=== PATIENT | female | born 1980 | race Caucasian/White ===

== ENCOUNTER 2021-12-12 04:16 | Outpatient (CLI) | payer OTHER, SELFPAY ==
[2021-12-12 20:35] LABS: COVID-19 RT-PCR UVMMC Result Negative (Negative)
== END 2021-12-12 04:17 | disposition home or self-care (01) ==
LOC: LBO 04:17
PROVIDERS: PCP Family Medicine; Visit Provider Obstetrics & Gynecology
DX: Z20.822 Contact with and (suspected) exposure to COVID-19 (principal)
CPT/HCPCS: U0003

== ENCOUNTER 2022-06-26 12:53 | Emergency (ER) | payer OTHER, SELFPAY ==
[2022-06-26 13:01] VITALS: BP 171/85; PULSE 80; RESP 16; TEMP 36.7; O2SAT 99
--- NOTE | 2022-06-26 13:30 | RT.EKG_ITS ---
APPROVED REPORT Exam: Resting ECG Reason for Exam: yola Patient Location: E HR:80 bpm ECG Measurements Heart Rate 80 AXIS WY 135 P 53 QRSd 106 QRS -15 QT 420 T 14 QTc 483 Conclusion Sinus rhythm...normal P axis, V-rate 60- 99 Probable left ventricular hypertrophy...multiple LVH criteria
--- NOTE | 2022-06-26 13:45 | DI.MRI_ITS ---
Exam(s) MR BRAIN WO EXAM: MR BRAIN WO CLINICAL HISTORY: global paralysis resolved TECHNIQUE: Multiplanar multisequence MRI of the brain was performed. COMPARISON: MR MR ANGIO BRAIN WO from 06/26/2022 FINDINGS: VENTRICLES AND EXTRA AXIAL SPACES: Normal in size and morphology for the patient's age. MIDLINE SHIFT: None. CEREBRAL PARENCHYMA: No focus of restricted diffusion to suggest acute infarct. No space-occupying le josette identified. HEMORRHAGE: None. BRAINSTEM/CEREBELLUM: Normal. CALVARIUM: Normal. VISUALIZED PARANASAL SINUSES/MASTOIDS:Clear. [place]: Normal flow void. PITUITARY GLAND: Unremarkable. OTHER FINDINGS: None. IMPRESSION: Unremarkable MRI of the brain. DATA REPOSITORY:
--- NOTE | 2022-06-26 13:45 | DI.MRI_ITS ---
Exam(s) MR ANGIO BRAIN WO CLINICAL HISTORY: global paralysis, resolved. TECHNIQUE: 3D lias-pk-qdudmy study was performed without contrast. COMPARISON: None. FINDINGS: Carotid Arteries: Petrous: Normal. Cavernous: Normal. Cerebral: Normal. Middle Cerebral Arteries: Right: No aneurysm or significant stenosis. Left: No aneurysm or significant stenosis. Anterior Cerebral Arteries: Right: No aneurysm or significant stenosis. Left: No aneurysm or significant stenosis. Posterior cerebral arteries: Right: No aneurysm or significant stenosis Left: No aneurysm or significant stenosis Vertebral Arteries: Right: No aneurysm or significant stenosis. No dissection. Left: No aneurysm or significant stenosis. No dissection.. Basilar Artery: No aneurysm or significant stenosis. Small Vessels: No evidence of beading. IMPRESSION: Normal MRA examination of the [place]. DATA REPOSITORY:
--- NOTE | 2022-06-26 13:45 | DI.MRI_ITS ---
Exam(s) MR ANGIO NECK WO EXAM: MR ANGIO NECK WO CLINICAL HISTORY: global paralysis, resolved. TECHNIQUE: And 3D uijg-me-fxtrjw studies were performed. COMPARISON: No exams were available for comparison FINDINGS: Common Carotid: Right: Normal. Left: Normal. External Carotid: Right: Normal. Left: Normal. Internal Carotid: Right: Normal. Left: Normal. Vertebral Artery: Right: Normal. Left: Normal. The visualized paraspinal soft tissues are unremarkable. IMPRESSION: Normal MRA of the carotids. Results of this exam have been verbally communicated with the emergency department provider. DATA REPOSITORY:
[2022-06-26 14:25] LABS: Abs Immature Grans 0.01 10^3/uL (0.0-0.06); Absolute Basophil Count 0.03 10^3/uL (0.0-0.2); Absolute Eosinophil Count 0.15 10^3/uL (0.0-0.7); Absolute Lymphocyte Count 2.28 10^3/uL (1.2-3.4); Absolute Monocyte Count 0.39 10^3/uL (0.1-0.8); Absolute Neutrophil Count 3.48 10^3/uL (1.2-6.7); Basophils % 0.5; Eosinophils % 2.4; HCT 43.6 % (36.0-46.0); HGB 13.9 g/dL (11.2-15.7); Immature Grans % 0.2; MCH 26.5 pg (27.0-33.0); MCHC 31.9 % (32.0-36.0); MCV 83 fL (80-95); MPV 9.1 fL (8.0-11.0); Monocytes % 6.2; Neutrophils % 54.7; Platelet Count 299 10^3/uL (130-400); RBC 5.25 10^6/uL (3.93-5.22); RDW 13.3 % (11.7-14.6); RDW-SD 40.5 fL; WBC 6.34 10^3/uL (4.4-10.8)
[2022-06-26 14:30] LABS: Source Nasal/Nares
[2022-06-26 14:43] LABS: ALT 20 U/L (14-59); AST 12 U/L (15-37); Albumin 4.1 g/dL (3.4-5.0); Alkaline Phosphatase 61 U/L (46-116); Anion Gap 9.1 mmol/L (3-11); BUN 19 mg/dL (7-18); Bilirubin, Total 0.3 mg/dL (0.2-1.0); CO2 27.9 mmol/L (21.0-32.0); Calcium 8.6 mg/dL (8.5-10.1); Chloride 106 mmol/L (98-107); Glucose 93 mg/dL (74-106); Potassium 3.3 mmol/L (3.5-5.1); Sodium 143 mmol/L (136-145); Total Protein 7.9 g/dL (6.4-8.2)
[2022-06-26 14:57] VITALS: RESP 18
[2022-06-26 15:02] LABS: Troponin I < 50 ng/L (<or=60)
--- NOTE | 2022-06-26 15:03 | W.ED.GENAD ---
Discharge Plan Disposition Patient Disposition: HOME Condition: Improving Discharge Details Clinical Impression: COVID-19, Altered mental status, unspecified Primary Care Provider: Francesca Nunez ED Provider: Hreberth Winter Home Meds and New Rx's Prescriptions: Continued fluoxetine 40 MG capsule 40 mg PO DAILY betamethasone valerate [Luxiq] 50 GM foam 50 gm Topical PRN eletriptan [Relpax] 20 MG tablet 20 mg PO PRN fexofenadine 180 MG tablet 180 mg PO DAILY Lactobacillus acidophilus 1 EACH tablet 1 ea PO DAILY acetaminophen-codeine [Tylenol-Codeine #3] 1 EACH tablet 1 - 2 tab-cap PO Q4H PRN Qty: 6 0RF Rx Instructions: 1-2 tabs PO q4h prn post-operative pain levalbuterol tartrate [Xopenex HFA] 15 GM HFA aerosol inhaler 90 mcg Inhalation Q4H PRN multivitamin 1 EACH capsule 1 ea PO Discharge Instructions Instructions: Altered Mental Status (ED), COVID-19 (Coronavirus Disease 2019) (ED) Additional Instructions: Your symptoms here in the ER have resolved and your work-up including blood work and MRI-MRA have all been unremarkable for any obvious emergent process. I consulted with neurology at [facility] and they did not have any other recommendations and felt as though discharge was appropriate with outpatient neurology follow-up. I have given you the name and number of our local neurology team, please contact them on Wednesday. Your COVID test today has come back positive. I do recommend wearing a mask and quarantining for the next 10 days. Please watch for new or worsening symptoms and return to the ER for any concerns. Referrals: Adrienne Yun MD [ [facility] STAFF PHYSICIAN] - Discharge Data Discharge Date/Time-TO BE ENTERED AT DEPARTURE: 06/26/22 18:14 Medical Decision Making <ARAM Chandler - Last Filed: 06/30/22 16:26> Patient has a nonfocal neurological exam She is fully alert and oriented CBC and labs Do not show evidence of acute abnormality EKG is within normal limits Pending MRI MRA of patient's head and neck Will transition care to Herberth Winter, pending MRI/MRA interpretation <ARAM Savage - Last Filed: 06/26/22 18:04> Patient has a nonfocal neurological exam She is fully alert and oriented CBC and labs Do not show evidence of acute abnormality EKG is within normal limits Pending MRI MRA of patient's head and neck Will transition care to Herberth Moy, pending MRI/MRA interpretation 1530: Herberth Winter PA-C I assumed care of this 41-year-old female from my colleague ARAM Banda, please see her initial HPI and examination. At time of signout awaiting interpretation of MRI-MRA. Patient is COVID-positive. I had a lengthy conversation with the patient regarding her COVID-positive test. She tells me that she was positive for COVID roughly 1 month ago. At this time we discussed initiating MAB or Paxlovid but she declines. Difficult to know whether this is a new infection or still positive from her recent infection. MRI-MRA unremarkable. I consulted with neurology from [facility], Dr. Vanessa. Given the patient is now asymptomatic, has no other risk factors, and has already had a negative MRI-MRA, he does not have any other recommendations, feels as though the patient can be discharged safely, and recommends outpatient follow-up whether that be here through our neurology team or at their clinic. Upon reevaluation patient is resting comfortably, remains asymptomatic and neurologically intact. We once again discussed that she is COVID-positive, does not wish to pursue treatment. We discussed her MRA and MRI results as well as my consultation with neurology at [facility]. She is at baseline and requesting discharge. Strict discharge and return precautions were provided. Patient understands, is agreeable to this plan, and has no additional questions or concerns upon discharge. This documentation was generated using [employer] dictation system, please disregard any oddities of phrase or misspellings. Medical Records Medical records reviewed: Yes I reviewed the patient's medical records. Imaging Data Radiologic Study: Attestation: I personally reviewed and interpreted this imaging study as follows: Imaging: X-Ray Radiologist's impression: Exam(s) MR BRAIN WO EXAM: MR BRAIN WO CLINICAL HISTORY: global paralysis resolved TECHNIQUE: Multiplanar multisequence MRI of the brain was performed. COMPARISON: MR MR ANGIO BRAIN WO from 06/26/2022 FINDINGS: VENTRICLES AND EXTRA AXIAL SPACES: Normal in size and morphology for the patient's age. MIDLINE SHIFT: None. CEREBRAL PARENCHYMA: No focus of restricted diffusion to suggest acute infarct. No space-occupying lesion identified. HEMORRHAGE: None. BRAINSTEM/CEREBELLUM: Normal. CALVARIUM: Normal. VISUALIZED PARANASAL SINUSES/MASTOIDS:Clear. [place]: Normal flow void. PIT[place]ARY [place]: Unremarkable. OTHER FINDINGS: None. IMPRESSION: Unremarkable MRI of the brain. Radiologic Study #2: Attestation: I personally reviewed and interpreted this imaging study as follows: Imaging: MRI Radiologist's impression: Exam(s) MR ANGIO BRAIN WO CLINICAL HISTORY: global paralysis, resolved. TECHNIQUE: 3D optz-jc-asacjs study was performed without contrast. COMPARISON: None. FINDINGS: Carotid Arteries: Petrous: Normal. Cavernous: Normal. Cerebral: Normal. Middle Cerebral Arteries: Right: No aneurysm or significant stenosis. Left: No aneurysm or significant stenosis. Anterior Cerebral Arteries: Right: No aneurysm or significant stenosis. Left: No aneurysm or significant stenosis. Posterior cerebral arteries: Right: No aneurysm or significant stenosis Left: No aneurysm or significant stenosis Vertebral Arteries: Right: No aneurysm or significant stenosis. No dissection. Left: No aneurysm or significant stenosis. No dissection.. Basilar Artery: No aneurysm or significant stenosis. Small Vessels: No evidence of beading. IMPRESSION: Normal MRA examination of the [place]. Radiologic Study #3: Attestation: I personally reviewed and interpreted this imaging study as follows: Imaging: MRI Radiologist's impression: Exam(s) MR ANGIO NECK WO EXAM: MR ANGIO NECK WO CLINICAL HISTORY: global paralysis, resolved. TECHNIQUE: And 3D ldnu-ze-gsxuit studies were performed. COMPARISON: No exams were available for comparison FINDINGS: Common Carotid: Right: Normal. Left: Normal. External Carotid: Right: Normal. Left: Normal. Internal Carotid: Right: Normal. Left: Normal. Vertebral Artery: Right: Normal. Left: Normal. The visualized paraspinal soft tissues are unremarkable. IMPRESSION: Normal MRA of the carotids. Results of this exam have been verbally communicated with the emergency department provider Lab Data Lab results reviewed: Yes I reviewed the patient's lab results. Labs: Laboratory Tests Range/Units 06/26/22 06/26/22 06/26/22 14:18 14:18 14:18 WBC (4.4-10.8) 10^3/uL 6.34 RBC (3.93-5.22) 10^6/uL 5.25 H Hgb (11.2-15.7) g/dL 13.9 Hct (36.0-46.0) % 43.6 MCV (80-95) fL 83 MCH (27.0-33.0) pg 26.5 L MCHC (32.0-36.0) % 31.9 L RDW (11.7-14.6) % 13.3 Plt Count (130-400) 10^3/uL 299 MPV (8.0-11.0) fL 9.1 Immature Gran % 0.2 Neutrophils % 54.7 Lymphocytes % 36.0 Monocytes % 6.2 Eosinophils % 2.4 Basophils % 0.5 Nucleated RBC % (0.0-0.3) % 0.0 Absolute Neutrophils (1.2-6.7) 10^3/uL 3.48 Absolute Lymphocytes (1.2-3.4) 10^3/uL 2.28 Absolute Monocytes (0.1-0.8) 10^3/uL 0.39 Absolute Eosinophils (0.0-0.7) 10^3/uL 0.15 Absolute Basophils (0.0-0.2) 10^3/uL 0.03 Sodium (136-145) mmol/L 143 Potassium (3.5-5.1) mmol/L 3.3 L Chloride (98-107) mmol/L 106 Carbon Dioxide (21.0-32.0) mmol/L 27.9 Anion Gap (3-11) mmol/L 9.1 BUN (7-18) mg/dL 19 H Creatinine (0.55-1.02) mg/dL 1.0 Estimated GFR/1.73 m2 (mL/min/1.73m2) >= 60.00 Glucose (74-106) mg/dL 93 Calcium (8.5-10.1) mg/dL 8.6 Magnesium (1.8-2.4) mg/dL 2.0 Total Bilirubin (0.2-1.0) mg/dL 0.3 AST (15-37) U/L 12 L ALT (14-59) U/L 20 Alkaline Phosphatase (46-116) U/L 61 Troponin I (<or=60) ng/L Total Protein (6.4-8.2) g/dL 7.9 Albumin (3.4-5.0) g/dL 4.1 COVID-19 Source Nasal/Nares SARS-CoV-2 (PCR) (Negative) POSITIVE A* Range/Units 06/26/22 14:18 WBC (4.4-10.8) 10^3/uL RBC (3.93-5.22) 10^6/uL Hgb (11.2-15.7) g/dL Hct (36.0-46.0) % MCV (80-95) fL MCH (27.0-33.0) pg MCHC (32.0-36.0) % RDW (11.7-14.6) % Plt Count (130-400) 10^3/uL MPV (8.0-11.0) fL Immature Gran % Neutrophils % Lymphocytes % Monocytes % Eosinophils % Basophils % Nucleated RBC % (0.0-0.3) % Absolute Neutrophils (1.2-6.7) 10^3/uL Absolute Lymphocytes (1.2-3.4) 10^3/uL Absolute Monocytes (0.1-0.8) 10^3/uL Absolute Eosinophils (0.0-0.7) 10^3/uL Absolute Basophils (0.0-0.2) 10^3/uL Sodium (136-145) mmol/L Potassium (3.5-5.1) mmol/L Chloride (98-107) mmol/L Carbon Dioxide (21.0-32.0) mmol/L Anion Gap (3-11) mmol/L BUN (7-18) mg/dL Creatinine (0.55-1.02) mg/dL Estimated GFR/1.73 m2 (mL/min/1.73m2) Glucose (74-106) mg/dL Calcium (8.5-10.1) mg/dL Magnesium (1.8-2.4) mg/dL Total Bilirubin (0.2-1.0) mg/dL AST (15-37) U/L ALT (14-59) U/L Alkaline Phosphatase (46-116) U/L Troponin I (<or=60) ng/L < 50 Total Protein (6.4-8.2) g/dL Albumin (3.4-5.0) g/dL COVID-19 Source SARS-CoV-2 (PCR) (Negative) HPI <ARAM Chandler - Last Filed: 06/30/22 16:26> General Date/Time Provider Initiated Documentation: 06/26/22 13:06. HPI Narrative: This 41-year-old female presents with report of acute left and inability to speak or move which came on abruptly. This lasted for approximately 10 to 20 seconds and then patient can patient is unable to communicate. Denies any seizure-like activity or history of similar symptoms in the past. Denies any headache. Denies any aura. Denies any tongue injury or incontinence. Denies any chance of . Family members with COVID reportedly. Denies any strength or sensation change. Denies any visual changes. Denies any dizziness or weakness. Related Data Home Medications Medication Instructions Recorded Confirmed Lactobacillus acidophilus 2 1 ea PO DAILY 06/02/17 08/04/17 billion cell tablet betamethasone valerate 0.12 % 50 gm topical PRN 06/02/17 08/04/17 topical foam (Luxiq) eletriptan 20 mg tablet (Relpax) 20 mg PO PRN 06/02/17 08/04/17 fexofenadine 180 mg tablet 180 mg PO DAILY 06/02/17 08/04/17 fluoxetine 40 mg capsule 40 mg PO DAILY 06/02/17 08/04/17 acetaminophen 300 mg-codeine 30 mg 1 - 2 tab-cap PO Q4H PRN #6 tabs 08/02/17 tablet (Tylenol-Codeine #3) Xopenex HFA 45 mcg/actuation 90 mcg inhalation Q4H PRN 09/07/17 aerosol inhaler (levalbuterol tartrate) multivitamin 1 ea PO 09/07/17 Previous Rx's Medication Instructions Recorded acetaminophen 300 mg-codeine 30 mg 1 - 2 tab-cap PO Q4H PRN #6 tabs 08/02/17 tablet (Tylenol-Codeine #3) Allergies Allergy/AdvReac Type Severity Reaction Status Date / Time acetaminophen [From Vicodin] Allergy Severe rash and Unverified 08/04/17 08:35 itching hydrocodone bitartrate Allergy Severe rash and Unverified 08/04/17 08:35 [From Vicodin] itching lamotrigine [From Lamictal] Allergy Severe rash Unverified 08/04/17 08:35 lynn hips Allergy Severe Anaphylaxsi Unverified 08/11/17 11:28 s adhesive Allergy Intermediate Skin Rash Unverified 08/11/17 11:28 General Stated Complaint: [facility] ANGELINA: 3 Review of Systems <ARAM Chandler - Last Filed: 06/30/22 16:26> All systems reviewed & are unremarkable except as noted in HPI and below PFSH <ARAM Chandler - Last Filed: 06/30/22 16:26> All Active Problems (Updated 06/26/22 @ 17:54 by ARAM Savage) COVID-19 (Acute) Altered mental status, unspecified (Acute) 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 Medical History (Updated 06/26/22 @ 17:54 by ARAM Savage) Asthma Depression History of shingles 2007 Migraine Surgical History (Updated 08/31/18 @ 14:37 by [employer] [place]) Biopsy, Soft Tissue (09/17/17) irritated anal skin tag - fibroepithelial polyp section x2 Cholecystectomy Dilation and curettage Family History Mother Sleep apnea Father Diabetes Heart disease Grandmother Neoplasm endometrial Maternal Uncle Neoplasm brain ca Social History Smoking/Tobacco Use Status: Never Smoking risk assessment performed?: Yes Alcohol Intake: never Drug use: Never Substance use type: does not use Exam <ARAM Chandler Last Filed: 06/30/22 16:26> Const General: cooperative, comfortable and no acute distress Orientation: alert and oriented x3 Eyes Pupils: PERRL Neck Other: No carotid bruit Resp Effort & Inspection: normal respiratory effort Auscultation: clear to auscultation bilaterally Cardio Rate: regular rate Rhythm: regular rhythm GI Inspection: normal to inspection Skin General skin exam: no rashes or lesions noted Neuro General: patient alert and patient oriented x3 Cranial Nerves: CN's II-XI intact bilaterally and tongue midline Cognition: normal cognition Speech: speech normal Gait: normal gait Sensory Exam: no sensory deficits noted Other: Negative fdgixv-hmqs-dgdlys, negative heel merlos, negative pronator drift Extrem Other: Distal pulses intact, ambulatory with steady gait Course <ARAM Chandler Last Filed: 06/30/22 16:26> Vital Signs Vital signs: Vital Signs Temperature 36.7 C 06/26/22 13:01 Pulse 80 06/26/22 13:01 Respiratory Rate 16 06/26/22 13:01 Blood Pressure 171/85 H 06/26/22 13:01 Pulse Oximetry 99 06/26/22 13:01 Temperature 36.7 C 06/26/22 13:01 Pulse 80 06/26/22 13:01 Respiratory Rate 18 06/26/22 14:57 Respiratory Effort Non-Labored 06/26/22 14:57 Respiratory Depth Normal 06/26/22 14:57 Respiratory Pattern Normal 06/26/22 14:57 Blood Pressure 171/85 H 06/26/22 13:01 Blood Pressure Position Sitting 06/26/22 13:01 Pulse Oximetry 99 06/26/22 13:01 Oxygen Delivery Method Room Air 06/26/22 13:01 Oxygen Flow Rate 0 06/26/22 13:01 Pain Level 0 06/26/22 13:01 Lab/Test Results Lab/Test Results: Laboratory Tests Range/Units 06/26/22 06/26/22 06/26/22 14:18 14:18 14:18 WBC (4.4-10.8) 10^3/uL 6.34 RBC (3.93-5.22) 10^6/uL 5.25 H Hgb (11.2-15.7) g/dL 13.9 Hct (36.0-46.0) % 43.6 MCV (80-95) fL 83 MCH (27.0-33.0) pg 26.5 L MCHC (32.0-36.0) % 31.9 L RDW (11.7-14.6) % 13.3 Plt Count (130-400) 10^3/uL 299 MPV (8.0-11.0) fL 9.1 Immature Gran % 0.2 Neutrophils % 54.7 Lymphocytes % 36.0 Monocytes % 6.2 Eosinophils % 2.4 Basophils % 0.5 Nucleated RBC % (0.0-0.3) % 0.0 Absolute Neutrophils (1.2-6.7) 10^3/uL 3.48 Absolute Lymphocytes (1.2-3.4) 10^3/uL 2.28 Absolute Monocytes (0.1-0.8) 10^3/uL 0.39 Absolute Eosinophils (0.0-0.7) 10^3/uL 0.15 Absolute Basophils (0.0-0.2) 10^3/uL 0.03 Sodium (136-145) mmol/L 143 Potassium (3.5-5.1) mmol/L 3.3 L Chloride (98-107) mmol/L 106 Carbon Dioxide (21.0-32.0) mmol/L 27.9 Anion Gap (3-11) mmol/L 9.1 BUN (7-18) mg/dL 19 H Creatinine (0.55-1.02) mg/dL 1.0 Estimated GFR/1.73 m2 (mL/min/1.73m2) >= 60.00 Glucose (74-106) mg/dL 93 Calcium (8.5-10.1) mg/dL 8.6 Magnesium (1.8-2.4) mg/dL 2.0 Total Bilirubin (0.2-1.0) mg/dL 0.3 AST (15-37) U/L 12 L ALT (14-59) U/L 20 Alkaline Phosphatase (46-116) U/L 61 Troponin I (<or=60) ng/L Total Protein (6.4-8.2) g/dL 7.9 Albumin (3.4-5.0) g/dL 4.1 COVID-19 Source Nasal/Nares Range/Units 06/26/22 14:18 WBC (4.4-10.8) 10^3/uL RBC (3.93-5.22) 10^6/uL Hgb (11.2-15.7) g/dL Hct (36.0-46.0) % MCV (80-95) fL MCH (27.0-33.0) pg MCHC (32.0-36.0) % RDW (11.7-14.6) % Plt Count (130-400) 10^3/uL MPV (8.0-11.0) fL Immature Gran % Neutrophils % Lymphocytes % Monocytes % Eosinophils % Basophils % Nucleated RBC % (0.0-0.3) % Absolute Neutrophils (1.2-6.7) 10^3/uL Absolute Lymphocytes (1.2-3.4) 10^3/uL Absolute Monocytes (0.1-0.8) 10^3/uL Absolute Eosinophils (0.0-0.7) 10^3/uL Absolute Basophils (0.0-0.2) 10^3/uL Sodium (136-145) mmol/L Potassium (3.5-5.1) mmol/L Chloride (98-107) mmol/L Carbon Dioxide (21.0-32.0) mmol/L Anion Gap (3-11) mmol/L BUN (7-18) mg/dL Creatinine (0.55-1.02) mg/dL Estimated GFR/1.73 m2 (mL/min/1.73m2) Glucose (74-106) mg/dL Calcium (8.5-10.1) mg/dL Magnesium (1.8-2.4) mg/dL Total Bilirubin (0.2-1.0) mg/dL AST (15-37) U/L ALT (14-59) U/L Alkaline Phosphatase (46-116) U/L Troponin I (<or=60) ng/L < 50 Total Protein (6.4-8.2) g/dL Albumin (3.4-5.0) g/dL COVID-19 Source Sign Out <ARAM Chandler - Last Filed: 06/30/22 16:26> Sign Out Data: Sign Out Comment: pending MRI/MRA interpretation and neurology consultation Last updated by Trisha Banda PA at 06/26/22 15:41
[2022-06-26 15:29] LABS: COVID-19 PCR POSITIVE (Negative)
[2022-06-26 17:45] VITALS: BP 133/80; PULSE 68; RESP 18; TEMP 36.4; O2SAT 100
--- NOTE | 2022-06-26 17:56 | NUR.NOTE ---
Nursing Note: Pt info faxed to neurology for follow up next week for unspecified AMS. Katiana, ED
== END 2022-06-26 18:14 | disposition home or self-care (01) ==
PROVIDERS: Physician Assistant; Emergency Provider Physician Assistant; PCP Family Medicine
DX: U07.1 COVID-19 (principal); R41.82 Altered mental status, unspecified; R53.1 Weakness; R29.818 Other symptoms and signs involving the nervous system; G83.89 Other specified paralytic syndromes
CPT/HCPCS: 36415; 70544; 70547; 80053; 87635; 93005; 99284; 99285; 70551; 83735; 84484; 85025; 93010

== ENCOUNTER → 2022-07-09 13:46 | Outpatient (BNVA) | payer OTHER, SELFPAY | PROVIDERS: PCP Family Medicine; Referring Provider Physician Assistant; Visit Provider Psychiatry & Neurology Neurology | DX: G43.709 Chronic migraine without aura, not intractable, without status migrainosus (principal); R40.4 Transient alteration of awareness; G47.00 Insomnia, unspecified; Z87.820 Personal history of traumatic brain injury | CPT/HCPCS: 99215 ==

== ENCOUNTER → 2023-05-05 07:28 | Outpatient (BNVA) | payer OTHER, SELFPAY | PROVIDERS: PCP Family Medicine; Referring Provider Family Medicine; Visit Provider Surgery | DX: R19.06 Epigastric swelling, mass or lump (principal) | CPT/HCPCS: 99213 ==

== ENCOUNTER → 2024-01-06 10:06 | Outpatient (BNVA) | payer OTHER, SELFPAY | PROVIDERS: PCP Family Medicine; Referring Provider Family Medicine; Visit Provider Physical Therapy Assistant | DX: R22.2 Localized swelling, mass and lump, trunk (principal) | CPT/HCPCS: 99213 ==

== ENCOUNTER 2024-01-28 10:35 | Day surgery (SDC) | payer OTHER, SELFPAY ==
--- NOTE | 2024-01-27 22:09 | W.PM.DSUDISC ---
Date of service: 01/28/24 Time of Service: 13:57 Discharge Plan Disposition Patient Disposition: Home Condition: Good Discharge Details Reason For Visit: Excision and primary closure of lipoma Attending Provider: Eddi Mehta Primary Care Provider: Francesca Nunez Home Meds and New Rx's Prescriptions: New tramadol 50 mg tablet 50 mg PO Q8H PRNQty: 12 0RF Rx Instructions: Take 1 tablet by mouth up to every 8 hours if needed for severe pain. Continued topiramate [Topamax] 100 mg tablet 100 mg PO DAILY eletriptan [Relpax] 40 mg tablet See Rx Instructions PO .COMPLEX Qty: 12 5RF Rx Instructions: take 1 tab at onset of headache; if no relief, may repeat 1 tab after at least 2 hrs; max = 2 tabs/24 hrs PO sertraline 25 mg tablet 25 mg PO DAILY Lactobacillus acidophilus 1 billion cell capsule 1,000 mmu cells PO DAILY betamethasone valerate [Luxiq] 50 GM foam 50 g Topical PRN levalbuterol tartrate [Xopenex HFA] 15 GM HFA aerosol inhaler 90 mcg Inhalation Q4H PRN multivitamin 1 EACH capsule 1 ea PO DIRECTED fexofenadine [Allergy Relief (fexofenadine)] 180 mg tablet 180 mg PO DAILY PRN bupropion HCl 300 mg tablet extended release 24 hr 450 mg PO QAM Discharge Instructions Additional Instructions: Lacey, your operation today went very smoothly. Interestingly, this was not actually a lipoma, rather hernia through the port site from your previous gallbladder surgery. The hole itself was quite small, and we were able to get everything reduced back into its normal position, and the hole closed up. Hopefully this will never bother you again. In the days to come, you may be fairly sore from the procedure. I provided a prescription for a medication called tramadol to help with pain after surgery if you need it. Generally, my patients to have difficulty with hydrocodone and oxycodone do pretty well with tramadol. Please feel free to use it if you need it. If you can get by with Tylenol and ibuprofen, that is even better. Do not be alarmed if you experience some bruising over the incision site. That is quite common. I would like to know if the skin starts turning red or has any kind of worrisome discharge. I would also like you to be a little careful with your lifting over the next week or 2. Try to restrict to less than 10 pounds in order to give the hernia repair time to heal. I look forward to seeing you in the office on February 08 at 8:45 AM, and please feel free to call in the meantime if you have any questions. 1. Resume all of your medications. 2. Use heating pads and ice packs around the incision for pain. 3. Use vldg-veo-dngkhhd Tylenol and ibuprofen. Alternate these every 6 hours for the first 2 days. Then use as needed. Use tramadol if needed for more severe pain. 4. Leave bandage in place for 24 hours, then remove. 5. Shower with warm soapy water. Pat dry. Use a bandaid if needed to protect your clothing. 6. No soaking or tub baths until I see you in the office. 7. No heavy lifting until I see you in the office. 8.Call the office (or go directly to the emergency room after hours) if you notice any of the following: Develop chills (warm to touch), or if you have a thermometer and your temperature is above 101 Difficulty breathing or difficultly swallowing Persistent vomiting Any bleeding ? exceeding one tablespoon 9. Call your physician if the site where your intravenous was started becomes red, swollen, painful, and warm to touch. Stand Alone Forms: Anesthesia Discharge InstKimmy Brian (DSU) Activity:: Activity as Tolerated Remove Dressings/Wound Care:: 24 hours Shower/Bathe:: 24 hours Diet:: As Tolerated Discharge Orders Discharge Orders: Discharge Order (Routine); Ordered 01/27/24 Ordered By: Eddi Mehta DS: Diagnosis Discharge Diagnosis (1) Lipoma: Status: Acute Asessment and Plan: Outpatient postoperative follow-up
--- NOTE | 2024-01-27 22:11 | W.PM.OP ---
Date of service: 01/28/24 Time of Service: 14:06 Operative Note Operative Note DATE OF PROCEDURE: 01/28/24 PRE-OP DIAGNOSIS: Abdominal wall lipoma POST-OP DIAGNOSIS: other (Cholecystectomy port site incisional hernia) PROCEDURE: Primary repair of mid epigastric port site hernia SURGEON: Eddi Mehta ASSISTANT FOOD SERVICE DIRECTOR: Janie Mora ANESTHESIA TYPE: Local By Surgeon and General LMA/ETT Refer to Anesthesia Record ESTIMATED BLOOD LOSS: 25 PATHOLOGY: none sent COMPLICATIONS: None Patient was transported to: PACU Patient's condition: stable Indications: Lucita is a 43-year-old woman with a slowly enlarging and occasionally uncomfortable lump in the mid epigastric of her abdominal wall. It soft and slightly mobile, and preoperative diagnosis seem most consistent with a lipoma. We planned for excision and primary closure of the lipoma. As it turns out, this is actually a port site incisional hernia Findings: Midepigastric port site incisional hernia Procedure Description: After the induction of general anesthesia, I prepped and draped the anterior abdominal wall. Next, I established a generous field block using local anesthetic. I then made a transverse incision over the long axis of the mass. We dissected down through the subcutaneous fat which appeared quite normal. As we dissected down into that plane, we encountered a well encapsulated mass. As I continued this dissection down towards the deepest part, it was obvious that this was actually a hernia sac protruding through a mid epigastric port site from her previous cholecystectomy. Majority the mass was reducible, but I was not able to completely reduce the contents. Therefore, I gently elongated the fascia defect towards the midline allowing better mobilization of the hernia sac and its contents. Sac was opened and carefully examined. It contained some omentum, and actually a portion of the obliterated umbilical ligament and some of the falciform ligament. The falciform ligament was divided between clamps and ligated, allowing the surrounding soft tissue to be reduced back into the peritoneal cavity proper. With this complete, I was able to isolate the fascial edge. The defect measured approximately 1.5 cm from left to right, and approximately 1 cm from top to bottom. With your surrounding soft tissue reduced, it was clear that this could be repaired primarily. Therefore, I used interrupted 0 Prolene sutures to close the defect transversely along the long axis of it. The overlying soft tissues were irrigated, and the skin was approximated with interrupted Vicryl stitches. The skin was then closed with a running subcuticular stitch and the patient was allowed awaken from the anesthetic and transferred to the recovery unit.
[2024-01-28] VITALS (11 sets, daily range): BP systolic 81–138; BP diastolic 47–86; PULSE 45–65; RESP 10–18; TEMP 36.2–36.5; O2SAT 96–100; BMI 27.0
[2024-01-28] MEDS: Lactated Ringers 1,000 ML 80 ML IV (11:14)
--- NOTE | 2024-01-28 11:40 | W.ANESPRE ---
General Info Date of Service Date Performed: 01/28/24 Height: 5 ft Weight: 62.8 kg Body Mass Index (BMI): 27.0 Surgical Procedure: Operation Date: 01/28/24 12:10 Proposed Procedure Side Surgeon p Excision Abdominal Lipoma Eddi Mehta MD Meds Allergies and Home Medications Allergies Allergy/AdvReac Type Severity Reaction Status Date / Time hydrocodone bitartrate Allergy Severe rash and Verified 01/25/24 12:50 [From Vicodin] itching lynn hips Allergy Severe Anaphylaxsi Verified 01/28/24 10:55 s adhesive Allergy Intermediate Skin Rash Verified 01/28/24 10:55 Home Medication Medication Instructions Recorded betamethasone valerate 0.12 % 50 g topical PRN 06/02/17 topical foam (Luxiq) Xopenex HFA 45 mcg/actuation 90 mcg inhalation Q4H PRN 09/07/17 aerosol inhaler (levalbuterol tartrate) multivitamin 1 ea PO DIRECTED 09/07/17 eletriptan 40 mg tablet (Relpax) See Rx Instructions PO .COMPLEX 07/09/22 #12 tabs topiramate 100 mg tablet (Topamax) 100 mg PO DAILY 07/09/22 fexofenadine 180 mg tablet 180 mg PO DAILY PRN 04/28/23 (Allergy Relief (fexofenadine)) Lactobacillus acidophilus 1 1,000 mmu cells PO DAILY 01/06/24 billion cell capsule bupropion HCl 300 mg 24 hr tablet, 450 mg PO QAM 01/06/24 extended release sertraline 25 mg tablet 25 mg PO DAILY 01/06/24 Current Visit Medications: Current Medications Generic Name Dose Route Start Last Admin Trade Name Ulissesq PRN Reason Stop Dose Admin Hydromorphone HCl 0.2 mg 01/27/24 22:11 Hydromorphone 2 Mg/Ml Syr IVP 02/26/24 22:10 Q1H PRN PRN Ringer's Solution 1,000 mls @ 80 mls/hr 01/28/24 06:00 01/28/24 11:14 IV 02/26/24 23:59 80 mls/hr INFUSION DEREJE Administration IV Miscellaneous Supplies 1 each 01/28/24 06:00 Iv Access IV 02/26/24 23:59 DIRECTED DEREJE Sodium Chloride 0 ml 01/28/24 06:00 Normal Saline Flush 10 Ml Syr IV 02/26/24 23:59 PRN PRN Sodium Chloride 0 ml 01/28/24 06:00 Normal Saline 10 Ml Vial IJ 02/26/24 23:59 DIRECTED PRN Sterile Water 0 ml 01/28/24 06:00 Water,Injection,Sterile 10 Ml Vial IJ 02/26/24 23:59 DIRECTED PRN Tramadol HCl 50 mg 01/27/24 22:11 Tramadol 50 Mg Tab PO 02/26/24 22:10 Q6H PRN PRN Pain PFSH Active Problems Active Problems: Problem Status Onset Code Lipoma D17.9 Female stress incontinence N39.3 Periodic limb movement disorder G47.61 Bartholin's cyst N75.0 Sexually transmitted disease exposure Z20.2 Migraine headache with aura G43.109 Chronic headache R51.9, G89.29 Insomnia G47.00 Nonspecific paroxysmal spell R40.4 Migraine headache without aura G43.009 COVID-19 U07.1 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 request scopolamine patch. Pt. stated when she had an ablation (2018) she was done under MAC, and was told she was fighting it, so she was converted to a general anesthetic. 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 S/P tubal ligation section x2 Dilation and curettage Cholecystectomy Biopsy, Soft Tissue (09/17/17) irritated anal skin tag - fibroepithelial polyp Tobacco Smoking/Tobacco Use Status: Never Alcohol Alcohol Intake: never Substance Use Substance use: Occasionally Substance use type: marijuana Vital Signs and Lab Results Vital Signs Most Recent Vital Signs in EMR: Most Recent Vital Signs Temp Pulse Resp BP Pulse Ox 36.5 C 60 16 138/86 97 01/28/24 10:42 01/28/24 10:42 01/28/24 10:42 01/28/24 10:42 01/28/24 10:42 Point of Care Results Point of Care Results: POC- Test(urine) Negative 01/28/24 11:13 Lab Results Blood Type / Crossmatch: No Data to Display Complete Blood Count: No Data to Display Complete Metabolic Panel: No Data to Display Liver Function Panel: No Data to Display Coagulation Panel: No Data to Display Cardiac Panel: No Data to Display Arterial Blood Gas: No Data to Display Venous Blood Gas: No Data to Display Pancreas Panel: No Data to Display Thyroid Panel: No Data to Display Infectious Disease: No Data to Display Blood Cultures: No Data to Display Toxicology Panel: No Data to Display Panel: No Data to Display Anesthesia Assessment and Plan Anesthesia History Personal History: PONV Family History: No Family History of Anesthesia Complications Exercise Tolerance Exercise Tolerance: Metabolic Equivalents>4 Pertinent Negatives Pertinent Negatives: No Symptoms of GERD Cardiac & Pulmonary Exam Cardiac Exam: Normal S1/S2 Heart Sounds Pulmonary Exam: Clear Bilateral Breath Sounds Implantable Cardiac Device Does patient have a Pacemaker or an ICD?: No Airway Exam Known Difficult Airway: No Mallampati Class: 1 Mouth Opening: Normal (> 3cm) Thyromental Distance: Greater than 3 cm Neck Range of Motion: Full ROM Neck Circumference: Normal Teeth Condition: Normal Dentition ASA Classification ASA Score: ASA 2 Emergency Case?: No NPO Status NPO Status: NPO Clears >2 hours, Solids >8 hours Status Status: Not Relevant due to Medical History Anesthesia Plan Resuscitation Status: Full Code Anesthesia Technique: General Anesthesia Airway Planned: LMA Monitors Used: Standard Monitors
[2024-01-28] MEDS: Bupivacaine 0.25% Pres-Free 30 ML VIAL (12:12)
[2024-01-28] MEDS: fentaNYL 100 MCG/2 ML VIAL IVP (13:59)
--- NOTE | 2024-01-28 14:17 | W.ANESPOSTOP ---
Postoperative Evaluation Date, Time and Location Date Performed: 01/28/24 Time Performed: 14:17 Patient Location: Day Surgery Unit Vital Signs Most Recent Imported Vital Signs: Most Recent Vital Signs Temp Pulse Resp BP Pulse Ox 36.3 C L 51 L 11 L 100/55 L 99 01/28/24 14:08 01/28/24 14:08 01/28/24 14:08 01/28/24 14:08 01/28/24 14:08 Pain Score Most Recent Pain Score: Most Recent Pain Score Pain Level 5 01/28/24 14:08 Assessment Mental Status: Awake (Alert & Oriented to Patient Baseline) Airway and Respiratory Function: Patent airway with normal (patient baseline) respiratory exam Cardiovascular Function: Hemodynamically Stable Hydration Status: Adequately Hydrated Nausea & Vomiting: No Nausea or Vomiting Pain: Pt. Denies Any Pain Peripheral Nerve Block: Patient did not receive a nerve block
== END 2024-01-28 15:00 | disposition home or self-care (01) ==
LOC: SUR 10:35
PROVIDERS: PCP Family Medicine; Visit Provider Surgery
PROC: (CPT 49591; principal; 2024-01-28 12:00)
DX: K43.2 Incisional hernia without obstruction or gangrene (principal); I10 Essential (primary) hypertension; J45.909 Unspecified asthma, uncomplicated; F31.81 Bipolar II disorder
CPT/HCPCS: 49591; 81025; J0665; J1100; J2001; J2250; J2405; J2704; J3010

== ENCOUNTER → 2024-02-09 08:34 | Outpatient (BNVA) | payer OTHER, SELFPAY | PROVIDERS: PCP Family Medicine; Referring Provider Family Medicine; Visit Provider Surgery | DX: Z48.817 Encounter for surgical aftercare following surgery on the skin and subcutaneous tissue (principal) ==